=== PATIENT | female | born 1955 | race Caucasian/White ===

== ENCOUNTER 2021-07-18 12:08 | Emergency (ER) | payer BC ==
[2021-07-18] MEDS ORDERED: ASACOL HD800 M1 PO (12:33)
[2021-07-18 14:28] LABS: BASO # 0.06 K/mm3 (0.02-0.10); EOS # 0.08 K/mm3 (0.04-0.40); EOS % 0.8 % (1.0-5.0); HEMATOCRIT 43.3 % (37.0-47.0); HEMOGLOBIN 14.2 g/dL (12.5-16.0); LYMPH# 1.86 K/mm3 (1.50-4.00); MEAN CELL VOLUME 92 fl (78-100); MEAN CORPUSCULAR HEMOGLOBIN 30 pg (27-31); MEAN CORPUSCULAR HGB CONC 33 g/dL (33-37); MEAN PLATELET VOLUME 9.9 fl (7.4-10.4); MONO # 0.57 K/mm3 (0.20-0.80); NEU # 7.72 K/mm3 (1.40-6.50); PLATELET COUNT 354 K/mm3 (130-400); RED BLOOD COUNT 4.72 M/mm3 (4.10-5.30); RED CELL DISTRIBUTION WIDTH 13.1 % (11.5-14.5); WHITE BLOOD COUNT 10.3 K/mm3 (4.8-10.8)
[2021-07-18 14:39] LABS: ALBUMIN 4.4 g/dL (3.4-4.8)
[2021-07-18 14:40] LABS: POTASSIUM 3.7 mmol/L (3.5-5.1)
[2021-07-18 14:41] LABS: CALCIUM 9.7 mg/dL (8.3-10.5)
[2021-07-18 14:42] LABS: TOTAL PROTEIN 7.1 g/dL (6.2-8.1)
[2021-07-18 14:44] LABS: TOTAL BILIRUBIN 1.1 mg/dL (0.2-1.2)
[2021-07-18 15:53] VITALS: BP 134/78
[2021-07-18 18:32] LABS: PARTIAL THROMBOPLASTIN TIME 24.5 SECONDS (21.0-32.0); PROTHROMBIN TIME 9.9 SECONDS (9.0-12.0)
== END 2021-07-18 15:50 | disposition short-term general hospital (02) ==
LOC: ED 12:08
PROVIDERS: Nurse Practitioner
DX: S12.110A Anterior displaced Type II dens fracture, initial encounter for closed fracture (principal); S12.001A Unspecified nondisplaced fracture of first cervical vertebra, initial encounter for closed fracture; Z20.822 Contact with and (suspected) exposure to COVID-19; W18.43XA Slipping, tripping and stumbling without falling due to stepping from one level to another, initial encounter
CPT/HCPCS: J2270; J2405; J3010; L0172

== ENCOUNTER 2021-07-23 12:09 | Emergency (ER) | payer BC ==
[~2021-07-23 12:09] MED LIST: ASACOL HD800 M1 PO
[2021-07-23] MEDS ORDERED: ROXICODONE 55 MG/TAB PO ×2 (12:17→12:40)
[2021-07-23] MEDS ORDERED: ZOFRAN ODT4 MG PO (12:17)
[2021-07-23 12:43] VITALS: BP 140/86
== END 2021-07-23 12:42 | disposition home or self-care (01) ==
LOC: ED 12:09
DX: S12.110A Anterior displaced Type II dens fracture, initial encounter for closed fracture (principal); S12.100A Unspecified displaced fracture of second cervical vertebra, initial encounter for closed fracture; S12.001A Unspecified nondisplaced fracture of first cervical vertebra, initial encounter for closed fracture; W10.9XXA Fall (on) (from) unspecified stairs and steps, initial encounter; Y92.009 Unspecified place in unspecified non-institutional (private) residence as the place of occurrence of the external cause

== ENCOUNTER → 2023-04-25 | Outpatient (CLI) | payer OTHER, MEDICARE ==
[~2023-04-25] MED LIST changes: +ROXICODONE 55 MG/TAB PO; +ZOFRAN ODT4 MG PO
== END ==
LOC: MAMMO 10:00
DX: Z12.31 Encounter for screening mammogram for malignant neoplasm of breast (principal); N64.89 Other specified disorders of breast

== ENCOUNTER → 2023-05-09 | Outpatient (CLI) | payer OTHER, MEDICARE | LOC: MAMMO 12:45 | DX: N63.25 Unspecified lump in the left breast, overlapping quadrants (principal) ==

== ENCOUNTER → 2023-06-03 | Outpatient (CLI) | payer OTHER, MEDICARE | LOC: RAD 07:30 | DX: N63.25 Unspecified lump in the left breast, overlapping quadrants (principal) | CPT/HCPCS: 15989; 15990; A4648 ==